=== PATIENT | female | born 1990 | race Caucasian/White ===

== ENCOUNTER 2020-05-04 11:12 | Emergency (ER) | payer MEDICAID, OTHER ==
[~2020-05-04] VITALS: Ht 162.6 cm; Wt 86.6 kg
[2020-05-04 11:21] VITALS: BP 114/67
== END 2020-05-04 11:57 | disposition home or self-care (01) ==
LOC: ER 11:24
DX: G56.01 Carpal tunnel syndrome, right upper limb (principal)

== ENCOUNTER 2021-11-09 15:35 | Emergency (ER) | payer MEDICAID, OTHER ==
[~2021-11-09] VITALS: Ht 162.6 cm; Wt 92.5 kg
[2021-11-09 15:58] VITALS: BP 122/79
== END 2021-11-09 17:27 | disposition home or self-care (01) ==
LOC: ER 15:40
DX: N93.9 Abnormal uterine and vaginal bleeding, unspecified (principal); J45.909 Unspecified asthma, uncomplicated